=== PATIENT | male | born 1975 | race Caucasian/White ===

== ENCOUNTER 2016-10-13 22:45 | Emergency (ER) | payer MEDICAID ==
[2016-10-13] MEDS ORDERED: ASPIRIN 81 MG CHEW TAB ONE (23:14)
[2016-10-14] MEDS ORDERED: SODIUM CHLORIDE 0.9% 1,000 ML ONE (03:13)
== END 2016-10-14 04:04 | disposition home or self-care (01) ==
LOC: ER 22:45
CPT/HCPCS: 36415; 71010; 80053; 82550; 83735; 84484; 85025; 85379; 85610; 85730; 93005